=== PATIENT | female | born 1955 | race Two or more races ===

== ENCOUNTER 2020-11-17 12:07 | Inpatient (IN) | payer BC, OTHER ==
[~2020-11-17] VITALS: Ht 180.3 cm; Wt 75.4 kg
[2020-11-17] MEDS ORDERED: methylPREDNISolone SOD SUCC 125 MG/2 ML VL IV ONE (12:30)
[2020-11-17 14:00] LABS: Lymphocytes # (auto) 0.8 10 ^3/uL (0.4-5.4); Neutrophils # (auto) 16.9 10 ^3/uL (1.6-8.6)
[2020-11-17 14:01] LABS: Basophils # (auto) 0.1 10 ^3/uL (0-0.2); Basophils % (auto) 0.5 % (0.0-2.0); Eosinophils # (auto) 0 10 ^3/uL (0-0.8); Eosinophils % (auto) 0.2 % (0.0-7.0); Hematocrit 46.8 % (36.0-46.0); Lymphocytes % (auto) 4.2 % (10.0-50.0); Mean Corpuscular Hemoglobin 30.5 pg (28.0-32.0); Mean Corpuscular Hgb Conc. 34.3 g/dL (32.0-36.0); Mean Corpuscular Volume 88.8 fL (80.0-100.0); Monocytes # (auto) 1.3 10 ^3/uL (0-1.3); Neutrophils % (auto) 88.1 % (37.0-80.0); Nucleated Red Blood Cells % 0.1 %; Platelet Count (auto) 676 10^3/uL (140-450); Red Blood Cells 5.27 10^6/uL (4.0-5.20); Red Cell Distribution Width 13.8 % (11.8-14.3); White Blood Cell 19.1 10^3/uL (4.4-10.8)
[2020-11-17 14:21] LABS: Albumin 2.6 g/dL (3.4-5.0); Anion Gap 9 (5-15); Blood Urea Nitrogen 59 mg/dL (7-18); Calcium 8.4 mg/dL (8.5-10.1); Carbon Dioxide 23 mmol/L (21-32); Chloride 112 mmol/L (98-107); Glucose 167 mg/dL (74-106); Potassium 3.9 mmol/L (3.5-5.1); Sodium 144 mmol/L (136-145)
[2020-11-17 14:26] LABS: Lactic Acid w/Reflex 2.9 mmol/L (0.4-2.0)
[2020-11-17 14:29] LABS: Alanine Aminotransferase 90 U/L (13-56); Alkaline Phosphatase 238 U/L (45-117); Aspartate Aminotransferase 153 U/L (15-37); CRP High Sensitivity 8.61 mg/dL (< 0.3); GFR African American 57 mL/min; GFR Non-African American 47 mL/min; Total Protein 8.1 g/dL (6.4-8.2)
[2020-11-17 15:21] LABS: Urine Bacteria FEW /hpf (None Seen); Urine Blood Negative /uL (Negative); Urine Hyaline Cast MOD /lpf (0 - 2); Urine Mucus FEW (None Seen); Urine Specific Gravity 1.023 (1.001-1.035); Urine WBC 5 /hpf (0 - 5)
[2020-11-17] MEDS ORDERED: CHOLECALCIFEROL (VITD3) 2,000 UNIT CAP PO ONE (16:15)
[2020-11-17] MEDS ORDERED: AZITHROMYCIN 500MG/ 250ML 250 ML IV ONE (16:15)
[2020-11-17] MEDS ORDERED: ASCORBIC ACID 500 MG TAB PO ONE (16:15)
[2020-11-17] MEDS ORDERED: ZINC SULFATE 220mg CAP or TAB PO ONE (16:15)
[2020-11-17] MEDS ORDERED: ONDANSETRON HCL 4 MG/2 ML VIAL IV PRN (16:30)
[2020-11-17] MEDS ORDERED: ACETAMINOPHEN 500 MG TAB PO PRN (16:30)
[2020-11-17] MEDS ORDERED: ALBUTEROL SULF HFA 90MCG INH 200DOSE IN PRN (16:30)
[2020-11-17] MEDS ORDERED: SODIUM CHLORIDE 0.9% 1,000 ML IV ONE (16:30)
[2020-11-17] MEDS ORDERED: HYDROcodone-ACET 5/325MG TAB PO PRN (16:30)
[2020-11-17] MEDS ORDERED: MORPHINE SULF INJ 2 MG/ML SYRINGE 1ML IV PRN ×2 (16:30)
[2020-11-17] MEDS ORDERED: REMDESIVIR PER PHARMACY 0 ML IV SCH (16:30)
[2020-11-17] MEDS ORDERED: NITROGLYCERIN 0.4 MG SL TAB SL PRN (16:30)
[2020-11-17] MEDS ORDERED: REMDESIVIR 200 MG in NS 210ml LOADING DOSE ADULT IV ONE (20:30)
[2020-11-17] MEDS: ENOXAPARIN SOD 40 MG/0.4 ML SYRINGE SC SCH (21:21)
[2020-11-17] MEDS: BUDESONIDE (INHALATION) 180 MCG IH IN SCH (22:00)
[2020-11-18] MEDS: BUDESONIDE (INHALATION) 180 MCG IH IN SCH (06:20)
[2020-11-18 07:09] LABS: Basophils # (auto) 0 10 ^3/uL (0-0.2); Eosinophils # (auto) 0 10 ^3/uL (0-0.8); Lymphocytes # (auto) 0.6 10 ^3/uL (0.4-5.4); Mean Corpuscular Hemoglobin 30.2 pg (28.0-32.0)
[2020-11-18 07:12] LABS: Basophils % (auto) 0.2 % (0.0-2.0); Hematocrit 43.5 % (36.0-46.0); Hemoglobin 14.5 g/dL (12.2-16.2); Lymphocytes % (auto) 3.3 % (10.0-50.0); Mean Corpuscular Hgb Conc. 33.4 g/dL (32.0-36.0); Mean Corpuscular Volume 90.3 fL (80.0-100.0); Monocytes # (auto) 1.1 10 ^3/uL (0-1.3); Monocytes % (auto) 6.2 % (0.0-12.0); Neutrophils # (auto) 15.4 10 ^3/uL (1.6-8.6); Neutrophils % (auto) 90.3 % (37.0-80.0); Nucleated Red Blood Cells % 0.1 %; Platelet Count (auto) 608 10^3/uL (140-450); Red Blood Cells 4.82 10^6/uL (4.0-5.20); Red Cell Distribution Width 13.8 % (11.8-14.3); White Blood Cell 17.1 10^3/uL (4.4-10.8)
[2020-11-18 07:40] LABS: Potassium 3.8 mmol/L (3.5-5.1)
[2020-11-18 07:48] LABS: BUN/Creatinine Ratio 54.2; Calcium 8.3 mg/dL (8.5-10.1)
[2020-11-18] MEDS: cefTRIAXone 1GM/50ML D5W 50 ML IV SCH (08:17)
[2020-11-18] MEDS: DexAMETHasone SOD PHOS 10MG/1ML VIAL INJ IV SCH (08:17)
[2020-11-18] MEDS: ASCORBIC ACID 1,000 MG TAB PO SCH (08:18)
[2020-11-18] MEDS: ZINC SULFATE 220mg CAP or TAB PO SCH (08:18)
[2020-11-18] MEDS: CHOLECALCIFEROL (VITD3) 2,000 UNIT CAP PO SCH (08:18)
[2020-11-18] MEDS: FAMOTIDINE 20 MG TAB PO SCH (08:18)
[2020-11-18] MEDS: ENOXAPARIN SOD 40 MG/0.4 ML SYRINGE SC SCH ×2 (08:18→21:13)
[2020-11-18] MEDS: AZITHROMYCIN 500MG/ 250ML 250 ML IV SCH (09:00)
[2020-11-18] MEDS ORDERED: REMDESIVIR 100mg 100 MG in SODIUM CHL 0.9% 230 ML IV SCH (15:00)
[2020-11-18] MEDS ORDERED: REMDESIVIR 200 MG in NS 210ml LOADING DOSE ADULT IV ONE (15:00)
[2020-11-18] MEDS: SODIUM CHLORIDE 0.9% 1,000 ML IV SCH (15:16)
[2020-11-18] MEDS: FUROSEMIDE 40 MG/4 ML VIAL IV SCH (18:00)
[2020-11-19] VITALS: BP 134/84
[2020-11-19] MEDS: FUROSEMIDE 40 MG/4 ML VIAL IV SCH ×2 (06:15→17:30)
[2020-11-19] MEDS: SODIUM CHLORIDE 0.9% 1,000 ML IV SCH ×2 (07:55→21:46)
[2020-11-19 08:00] VITALS: BP 137/81
[2020-11-19 08:11] LABS: Mean Corpuscular Hgb Conc. 33.7 g/dL (32.0-36.0)
[2020-11-19 08:12] LABS: INR 1.19 (0.9-1.15); Partial Thromboplastin Time 24.2 sec (23.0-31.2)
[2020-11-19 08:15] LABS: Hematocrit 42.8 % (36.0-46.0); Hemoglobin 14.4 g/dL (12.2-16.2); Mean Corpuscular Hemoglobin 30.1 pg (28.0-32.0); Mean Corpuscular Volume 89.3 fL (80.0-100.0); Platelet Count (auto) 717 10^3/uL (140-450); Red Blood Cells 4.79 10^6/uL (4.0-5.20); Red Cell Distribution Width 13.7 % (11.8-14.3); White Blood Cell 20.3 10^3/uL (4.4-10.8)
[2020-11-19 08:20] LABS: Potassium 3.8 mmol/L (3.5-5.1)
[2020-11-19 08:21] LABS: Basophils % (manual) 0 (0.0-2.0); Blast Cells 0; Metamyelocytes % 0; Promyelocytes % 0
[2020-11-19 08:33] LABS: Albumin 2.5 g/dL (3.4-5.0); BUN/Creatinine Ratio 63.2; Bilirubin, Total 0.6 mg/dL (0.2-1.0); Calcium 8.5 mg/dL (8.5-10.1); Magnesium 3.5 mg/dL (1.6-2.6); Phosphorus 3.5 mg/dL (2.5-4.90); Total Protein 7.3 g/dL (6.4-8.2)
[2020-11-19] MEDS: cefTRIAXone 1GM/50ML D5W 50 ML IV SCH (09:43)
[2020-11-19] MEDS: POTASSIUM CHL 10 Meq TABLET PO SCH (09:48)
[2020-11-19] MEDS: ZINC SULFATE 220mg CAP or TAB PO SCH (09:48)
[2020-11-19] MEDS: ASCORBIC ACID 1,000 MG TAB PO SCH (09:48)
[2020-11-19] MEDS: CHOLECALCIFEROL (VITD3) 2,000 UNIT CAP PO SCH (09:48)
[2020-11-19] MEDS: DexAMETHasone SOD PHOS 10MG/1ML VIAL INJ IV SCH (09:48)
[2020-11-19] MEDS: FAMOTIDINE 20 MG TAB PO SCH (09:48)
[2020-11-19] MEDS: ENOXAPARIN SOD 40 MG/0.4 ML SYRINGE SC SCH ×2 (09:48→21:46)
[2020-11-19] MEDS: AZITHROMYCIN 500MG/ 250ML 250 ML IV SCH (10:15)
[2020-11-19 12:35] LABS: Band Neutrophils % (manual) 8; Eosinophils % (manual) 1 (0-7); Lymphocytes % (manual) 6 (10.0-50.0); Monocytes % (manual) 10 (0-12); Myelocytes % 4; Reactive Lymphocytes 1
[2020-11-19 14:00] VITALS: BP 119/87
[2020-11-19] MEDS: REMDESIVIR 100mg 100 MG in SODIUM CHL 0.9% 230 ML IV SCH (15:54)
[2020-11-19 16:15] VITALS: BP 119/87
[2020-11-20] VITALS: BP 116/78
[2020-11-20] MEDS ORDERED: SOD CHL 0.45% 1,000 ML IV SCH (00:30)
[2020-11-20 06:08] LABS: Basophils # (auto) 0.1 10 ^3/uL (0-0.2); Basophils % (auto) 0.5 % (0.0-2.0); Eosinophils # (auto) 0 10 ^3/uL (0-0.8); Eosinophils % (auto) 0.1 % (0.0-7.0); Monocytes # (auto) 1.7 10 ^3/uL (0-1.3); Red Cell Distribution Width 13.9 % (11.8-14.3)
[2020-11-20] MEDS: FUROSEMIDE 40 MG/4 ML VIAL IV SCH ×2 (06:08→18:00)
[2020-11-20 06:10] LABS: Hematocrit 44.7 % (36.0-46.0); Hemoglobin 14.9 g/dL (12.2-16.2); Lymphocytes # (auto) 0.7 10 ^3/uL (0.4-5.4); Lymphocytes % (auto) 3.5 % (10.0-50.0); Mean Corpuscular Hemoglobin 30.6 pg (28.0-32.0); Mean Corpuscular Hgb Conc. 33.4 g/dL (32.0-36.0); Mean Corpuscular Volume 91.5 fL (80.0-100.0); Neutrophils % (auto) 86.9 % (37.0-80.0); Nucleated Red Blood Cells % 0.1 %; Platelet Count (auto) 734 10^3/uL (140-450); Red Blood Cells 4.89 10^6/uL (4.0-5.20); White Blood Cell 18.4 10^3/uL (4.4-10.8)
[2020-11-20 06:28] LABS: INR 1.24 (0.9-1.15); Partial Thromboplastin Time 27.5 sec (23.0-31.2)
[2020-11-20 06:32] LABS: Potassium 4.1 mmol/L (3.5-5.1)
[2020-11-20 06:57] LABS: Albumin 2.6 g/dL (3.4-5.0); BUN/Creatinine Ratio 53.5; Bilirubin, Total 0.7 mg/dL (0.2-1.0); Calcium 8.5 mg/dL (8.5-10.1); Magnesium 3.6 mg/dL (1.6-2.6); Phosphorus 4.3 mg/dL (2.5-4.90); Total Protein 7.6 g/dL (6.4-8.2)
[2020-11-20 08:00] VITALS: BP 119/74
[2020-11-20] MEDS: cefTRIAXone 1GM/50ML D5W 50 ML IV SCH (09:21)
[2020-11-20] MEDS: DexAMETHasone SOD PHOS 10MG/1ML VIAL INJ IV SCH (09:26)
[2020-11-20] MEDS: ENOXAPARIN SOD 40 MG/0.4 ML SYRINGE SC SCH ×2 (09:26→21:05)
[2020-11-20] MEDS: CHOLECALCIFEROL (VITD3) 2,000 UNIT CAP PO SCH (09:29)
[2020-11-20] MEDS: POTASSIUM CHL 10 Meq TABLET PO SCH (09:29)
[2020-11-20] MEDS: FAMOTIDINE 20 MG TAB PO SCH (09:29)
[2020-11-20] MEDS: ASCORBIC ACID 1,000 MG TAB PO SCH (09:29)
[2020-11-20] MEDS: ZINC SULFATE 220mg CAP or TAB PO SCH (09:29)
[2020-11-20] MEDS: AZITHROMYCIN 500MG/ 250ML 250 ML IV SCH (10:30)
[2020-11-20 16:00] VITALS: BP 125/85
[2020-11-20] MEDS: REMDESIVIR 100mg 100 MG in SODIUM CHL 0.9% 230 ML IV SCH (16:30)
[2020-11-20 20:42] LABS: Creatinine, Urine 87.9 mg/dL (30.0-125.0)
[2020-11-20] MEDS: D5W 5% 1,000 ML IV SCH (23:15)
[2020-11-21] VITALS: BP 123/81
[2020-11-21] MEDS: D5W 5% 1,000 ML IV SCH ×2 (06:56→15:20)
[2020-11-21 08:00] VITALS: BP 130/58
[2020-11-21] MEDS: cefTRIAXone 1GM/50ML D5W 50 ML IV SCH (09:04)
[2020-11-21] MEDS: FAMOTIDINE 20 MG TAB PO SCH (09:24)
[2020-11-21] MEDS: CHOLECALCIFEROL (VITD3) 2,000 UNIT CAP PO SCH (09:24)
[2020-11-21] MEDS: ASCORBIC ACID 1,000 MG TAB PO SCH (09:24)
[2020-11-21] MEDS: ZINC SULFATE 220mg CAP or TAB PO SCH (09:24)
[2020-11-21] MEDS: DexAMETHasone SOD PHOS 10MG/1ML VIAL INJ IV SCH (09:41)
[2020-11-21] MEDS: ENOXAPARIN SOD 40 MG/0.4 ML SYRINGE SC SCH ×2 (09:41→21:29)
[2020-11-21] MEDS: AZITHROMYCIN 500MG/ 250ML 250 ML IV SCH (10:29)
[2020-11-21 11:36] LABS: Potassium 4.2 mmol/L (3.5-5.1)
[2020-11-21 11:52] LABS: Albumin 2.4 g/dL (3.4-5.0); BUN/Creatinine Ratio 45.9; Bilirubin, Total 0.5 mg/dL (0.2-1.0); CRP High Sensitivity 5.72 mg/dL (< 0.3); Calcium 8.1 mg/dL (8.5-10.1); Total Protein 7.2 g/dL (6.4-8.2)
[2020-11-21] MEDS: REMDESIVIR 100mg 100 MG in SODIUM CHL 0.9% 230 ML IV SCH (15:48)
[2020-11-21 16:00] VITALS: BP 134/88
[2020-11-22] VITALS: BP 140/64
[2020-11-22] MEDS: D5W 5% 1,000 ML IV SCH ×4 (02:08→22:30)
[2020-11-22 08:00] VITALS: BP 116/73
[2020-11-22 08:15] LABS: Albumin 2.3 g/dL (3.4-5.0); Anion Gap 4 (5-15); Calcium 7.8 mg/dL (8.5-10.1); Carbon Dioxide 27 mmol/L (21-32); Chloride 119 mmol/L (98-107); Glucose 165 mg/dL (74-106); Potassium 4.1 mmol/L (3.5-5.1); Sodium 150 mmol/L (136-145)
[2020-11-22 08:21] LABS: Alanine Aminotransferase 72 U/L (13-56); Alkaline Phosphatase 237 U/L (45-117); Aspartate Aminotransferase 74 U/L (15-37); BUN/Creatinine Ratio 44.4; Bilirubin, Total 0.5 mg/dL (0.2-1.0); Blood Urea Nitrogen 40 mg/dL (7-18); GFR African American 81 mL/min; GFR Non-African American 67 mL/min; Total Protein 6.6 g/dL (6.4-8.2)
[2020-11-22] MEDS: cefTRIAXone 1GM/50ML D5W 50 ML IV SCH (09:26)
[2020-11-22] MEDS: DexAMETHasone SOD PHOS 10MG/1ML VIAL INJ IV SCH (09:28)
[2020-11-22] MEDS: ENOXAPARIN SOD 40 MG/0.4 ML SYRINGE SC SCH ×2 (09:28→21:24)
[2020-11-22] MEDS: ZINC SULFATE 220mg CAP or TAB PO SCH (09:38)
[2020-11-22] MEDS: FAMOTIDINE 20 MG TAB PO SCH (09:38)
[2020-11-22] MEDS: ASCORBIC ACID 1,000 MG TAB PO SCH (09:38)
[2020-11-22] MEDS: CHOLECALCIFEROL (VITD3) 2,000 UNIT CAP PO SCH (09:38)
[2020-11-22] MEDS: AZITHROMYCIN 500MG/ 250ML 250 ML IV SCH (11:00)
[2020-11-22] MEDS: REMDESIVIR 100mg 100 MG in SODIUM CHL 0.9% 230 ML IV SCH (15:40)
[2020-11-22 16:10] VITALS: BP 105/65
[2020-11-23] VITALS: BP 111/72
[2020-11-23] MEDS: D5W 5% 1,000 ML IV SCH ×3 (06:57→23:13)
[2020-11-23 08:00] VITALS: BP 107/72
[2020-11-23 08:46] LABS: Calcium 7.7 mg/dL (8.5-10.1); Potassium 3.8 mmol/L (3.5-5.1)
[2020-11-23 08:48] LABS: BUN/Creatinine Ratio 38.7
[2020-11-23] MEDS: cefTRIAXone 1GM/50ML D5W 50 ML IV SCH (08:56)
[2020-11-23] MEDS: DexAMETHasone SOD PHOS 10MG/1ML VIAL INJ IV SCH (08:57)
[2020-11-23] MEDS: ENOXAPARIN SOD 40 MG/0.4 ML SYRINGE SC SCH ×2 (08:57→23:34)
[2020-11-23] MEDS: FAMOTIDINE 20 MG TAB PO SCH (08:58)
[2020-11-23] MEDS: ZINC SULFATE 220mg CAP or TAB PO SCH (08:58)
[2020-11-23] MEDS: ASCORBIC ACID 1,000 MG TAB PO SCH (08:59)
[2020-11-23] MEDS: CHOLECALCIFEROL (VITD3) 2,000 UNIT CAP PO SCH (08:59)
[2020-11-23] MEDS: AZITHROMYCIN 500MG/ 250ML 250 ML IV SCH (10:51)
[2020-11-23 15:33] VITALS: BP 105/66
[2020-11-23] MEDS ORDERED: BUMETANIDE INJECTION 50 ML ONE (20:29)
[2020-11-23 23:41] VITALS: BP 118/64
[2020-11-24] MEDS: D5W 5% 1,000 ML IV SCH (06:42)
[2020-11-24 07:34] LABS: Potassium 4.2 mmol/L (3.5-5.1)
[2020-11-24 07:40] LABS: Calcium 7.4 mg/dL (8.5-10.1)
[2020-11-24] MEDS: AZITHROMYCIN 500MG/ 250ML 250 ML IV SCH (10:01)
[2020-11-24] MEDS: cefTRIAXone 1GM/50ML D5W 50 ML IV SCH (10:01)
[2020-11-24] MEDS: CHOLECALCIFEROL (VITD3) 2,000 UNIT CAP PO SCH (10:02)
[2020-11-24] MEDS: ASCORBIC ACID 1,000 MG TAB PO SCH (10:02)
[2020-11-24] MEDS: FAMOTIDINE 20 MG TAB PO SCH (10:02)
[2020-11-24] MEDS: ENOXAPARIN SOD 40 MG/0.4 ML SYRINGE SC SCH ×2 (10:02→22:14)
[2020-11-24] MEDS: ZINC SULFATE 220mg CAP or TAB PO SCH (10:02)
[2020-11-24 16:00] VITALS: BP 93/54
[2020-11-24] MEDS: DexAMETHasone SOD PHOS 10MG/1ML VIAL INJ IV SCH (18:21)
[2020-11-25] VITALS: BP 119/71
[2020-11-25 07:41] VITALS: BP 126/84
[2020-11-25 08:19] LABS: Potassium 4.2 mmol/L (3.5-5.1)
[2020-11-25 08:23] LABS: BUN/Creatinine Ratio 33.9; Calcium 8.1 mg/dL (8.5-10.1)
[2020-11-25] MEDS: ASCORBIC ACID 1,000 MG TAB PO SCH (10:00)
[2020-11-25] MEDS: CHOLECALCIFEROL (VITD3) 2,000 UNIT CAP PO SCH (10:00)
[2020-11-25] MEDS: ZINC SULFATE 220mg CAP or TAB PO SCH (10:00)
[2020-11-25] MEDS: FAMOTIDINE 20 MG TAB PO SCH (10:00)
[2020-11-25] MEDS: ENOXAPARIN SOD 40 MG/0.4 ML SYRINGE SC SCH ×2 (12:11→22:01)
[2020-11-25] MEDS: cefTRIAXone 1GM/50ML D5W 50 ML IV SCH (12:11)
[2020-11-25] MEDS: DexAMETHasone SOD PHOS 10MG/1ML VIAL INJ IV SCH (12:11)
[2020-11-25] MEDS: AZITHROMYCIN 500MG/ 250ML 250 ML IV SCH (12:11)
[2020-11-25 16:00] VITALS: BP 119/79
[2020-11-26] VITALS: BP 126/79
[2020-11-26 06:02] LABS: Albumin 2.1 g/dL (3.4-5.0); Calcium 8.2 mg/dL (8.5-10.1); Potassium 4.3 mmol/L (3.5-5.1)
[2020-11-26 06:06] LABS: BUN/Creatinine Ratio 31.1; Bilirubin, Total 0.6 mg/dL (0.2-1.0); Total Protein 6.5 g/dL (6.4-8.2)
[2020-11-26 08:00] VITALS: BP 118/66
[2020-11-26] MEDS: cefTRIAXone 1GM/50ML D5W 50 ML IV SCH (09:55)
[2020-11-26] MEDS: DexAMETHasone SOD PHOS 10MG/1ML VIAL INJ IV SCH (09:55)
[2020-11-26] MEDS: CHOLECALCIFEROL (VITD3) 2,000 UNIT CAP PO SCH (10:00)
[2020-11-26] MEDS: ENOXAPARIN SOD 40 MG/0.4 ML SYRINGE SC SCH ×2 (10:10→22:15)
[2020-11-26] MEDS: ASCORBIC ACID 1,000 MG TAB PO SCH (10:11)
[2020-11-26] MEDS: FAMOTIDINE 20 MG TAB PO SCH (10:11)
[2020-11-26] MEDS: ZINC SULFATE 220mg CAP or TAB PO SCH (10:11)
[2020-11-26] MEDS: AZITHROMYCIN 500MG/ 250ML 250 ML IV SCH (12:27)
[2020-11-26 16:00] VITALS: BP 116/77
[2020-11-27] VITALS: BP 119/77
[2020-11-27 06:40] LABS: Basophils # (auto) 0 10 ^3/uL (0-0.2); Basophils % (auto) 0.2 % (0.0-2.0); Eosinophils # (auto) 0 10 ^3/uL (0-0.8); Eosinophils % (auto) 0.1 % (0.0-7.0); Hematocrit 36.7 % (36.0-46.0); Hemoglobin 12.4 g/dL (12.2-16.2); Lymphocytes # (auto) 0.7 10 ^3/uL (0.4-5.4); Mean Corpuscular Hemoglobin 30.2 pg (28.0-32.0); Mean Corpuscular Hgb Conc. 33.8 g/dL (32.0-36.0); Mean Corpuscular Volume 89.2 fL (80.0-100.0); Monocytes % (auto) 5.9 % (0.0-12.0); Neutrophils # (auto) 15.3 10 ^3/uL (1.6-8.6); Neutrophils % (auto) 89.8 % (37.0-80.0); Nucleated Red Blood Cells % 0.1 %; Platelet Count (auto) 364 10^3/uL (140-450); Red Blood Cells 4.11 10^6/uL (4.0-5.20); Red Cell Distribution Width 13.2 % (11.8-14.3); White Blood Cell 17.1 10^3/uL (4.4-10.8)
[2020-11-27 06:46] LABS: Calcium 8.4 mg/dL (8.5-10.1); Potassium 4.5 mmol/L (3.5-5.1)
[2020-11-27 06:57] LABS: BUN/Creatinine Ratio 31.9
[2020-11-27 08:00] VITALS: BP 124/72
[2020-11-27] MEDS: cefTRIAXone 1GM/50ML D5W 50 ML IV SCH (09:26)
[2020-11-27] MEDS: DexAMETHasone SOD PHOS 10MG/1ML VIAL INJ IV SCH (09:26)
[2020-11-27] MEDS: ZINC SULFATE 220mg CAP or TAB PO SCH (09:26)
[2020-11-27] MEDS: FAMOTIDINE 20 MG TAB PO SCH (09:26)
[2020-11-27] MEDS: CHOLECALCIFEROL (VITD3) 2,000 UNIT CAP PO SCH (09:27)
[2020-11-27] MEDS: ASCORBIC ACID 1,000 MG TAB PO SCH (09:27)
[2020-11-27] MEDS: ENOXAPARIN SOD 40 MG/0.4 ML SYRINGE SC SCH ×2 (09:27→21:58)
[2020-11-27] MEDS: AZITHROMYCIN 500MG/ 250ML 250 ML IV SCH (10:28)
[2020-11-27 16:00] VITALS: BP 134/78
[2020-11-27 17:04] VITALS: BP 134/72
[2020-11-28] VITALS: BP 131/78
[2020-11-28 05:46] VITALS: BP 134/69
[2020-11-28 08:00] VITALS: BP 142/89
[2020-11-28] MEDS ORDERED: SUCCINYLCHOLINE CHLORIDE 20 MG/ML 10ML VIAL IV ONE (09:54)
[2020-11-28] MEDS ORDERED: ETOMIDATE (2MG/ML) 20ML VIAL IV ONE (09:54)
[2020-11-28 10:11] LABS: Hematocrit 37.8 % (36.0-46.0); Hemoglobin 12.9 g/dL (12.2-16.2); Mean Corpuscular Hemoglobin 30.3 pg (28.0-32.0); Mean Corpuscular Hgb Conc. 34.1 g/dL (32.0-36.0); Platelet Count (auto) 528 10^3/uL (140-450); Red Blood Cells 4.25 10^6/uL (4.0-5.20); Red Cell Distribution Width 13.6 % (11.8-14.3)
[2020-11-28 10:14] LABS: White Blood Cell 31.8 10^3/uL (4.4-10.8)
[2020-11-28 10:16] LABS: Band Neutrophils % (manual) 0; Basophils % (manual) 0 (0.0-2.0); Blast Cells 0; Eosinophils % (manual) 0 (0-7); Metamyelocytes % 0; Myelocytes % 0; Promyelocytes % 0; Reactive Lymphocytes 0
[2020-11-28 10:32] LABS: BUN/Creatinine Ratio 27.4; Calcium 8.6 mg/dL (8.5-10.1); Magnesium 2.2 mg/dL (1.6-2.6); Potassium 4.3 mmol/L (3.5-5.1)
[2020-11-28 10:53] LABS: Lymphocytes % (manual) 2 (10.0-50.0); Monocytes % (manual) 14 (0-12)
== END 2020-11-28 14:30 | DRG 871 ==
LOC: ER 12:07 → EDBD 12:07 → TELE 16:37 → TELE-WESTW 11-18 18:45
PROVIDERS: ADMIT Nurse Practitioner Acute Care; ATTEND Internal Medicine
PROC: XW033E5 Introduction of Remdesivir Anti-infective into Peripheral Vein, Percutaneous Approach, New Technology Group 5 (ICD-10-PCS; principal; 2020-11-18)
DX: A41.89 Other specified sepsis (principal); G93.41 Metabolic encephalopathy; G93.5 Compression of brain; G93.6 Cerebral edema; J12.82 Pneumonia due to coronavirus disease 2019; J96.01 Acute respiratory failure with hypoxia; N17.0 Acute kidney failure with tubular necrosis; U07.1 COVID-19; E44.0 Moderate protein-calorie malnutrition; E87.0 Hyperosmolality and hypernatremia; G93.1 Anoxic brain damage, not elsewhere classified; I62.9 Nontraumatic intracranial hemorrhage, unspecified; Z51.5 Encounter for palliative care; D32.0 Benign neoplasm of cerebral meninges; D89.839 Cytokine release syndrome, grade unspecified; E86.0 Dehydration; N18.30 Chronic kidney disease, stage 3 unspecified; R73.03 Prediabetes
CPT/HCPCS: 36415; 36600; 70450; 71045; 80048; 80053; 80061; 81001; 82140; 82306; 82570; 82607; 82728; 82746; 82805; 82962; 83036; 83605; 83615; 83735; 83880; 83935; 84100; 84300; 84443; 84484; 85007; 85025; 85027; 85379; 85610; 85730; 86141; 87040; 87426; 92610; 93005; 93306; 93970; 97110; 97116; 97163; 97530; G0378; J0330; J0696; J1100